=== PATIENT | female | born 1960 | race Caucasian/White ===

== ENCOUNTER → 2018-09-22 08:03 | Outpatient (CLI) | payer BC, SELFPAY ==
--- NOTE | 2018-09-22 08:24 | CT_ITS ---
STUDY: CT ABDOMEN AND PELVIS WITH CONTRAST REASON FOR EXAM: Female, 58 years old. Right flank pain. Lower abdominal pain. History of partial left nephrectomy for renal cancer. History of appendectomy and cholecystectomy and salpingo-oophorectomy. RADIATION DOSAGE (If Supplied By Facility): CTDIvol = ( 11.59 ) mGy, DLP = ( 1050.48 ) mGycm TECHNIQUE: Transaxial images were obtained from the dome of the diaphragm to the symphysis pubis with oral contrast. Isovue 300 100 IV/Oral was administered. Sagittal and coronal images were reconstructed. Individualized dose optimization techniques were used for this CT. COMPARISON: July 30, 2015. FINDINGS: The visualized lung bases are unremarkable. The visualized portions of the heart are within normal limits. There is minimal fatty infiltration liver without focal mass. Gallbladder is absent consistent with history of cholecystectomy. No biliary ductal dilatation. Normal spleen. Normal pancreas. Normal bilateral adrenal glands. Normal right kidney. Normal right ureter. The left kidney appears grossly normal in size and cortical thickness and enhancement. The upper pole area is an exophytic mixed fat and solid density mass measuring 1.4 x 1.3 x 1.7 cm with minimal stranding in the adjacent fat. This is the site of the prior renal malignancy seen on the earlier examination. There are pararenal cyst. Normal left ureter. There is a small type I hiatal hernia. The stomach is otherwise unremarkable. Normal small intestine. Normal colon. There is non-visualization of the appendix. Normal abdominal aorta. Normal inferior vena cava. Normal retroperitoneum. Normal urinary bladder. The uterus is anteverted and midline. There is no visualized right adnexa. There is a 1.6 cm cyst in the left ovary. There is no pelvic lymphadenopathy. No free air or free fluid is seen within the peritoneal cavity. Normal abdominal wall. Stable mild degenerative changes of the lumbar spine. CT/Abdomen/Pelvis WITH Contrast IMPRESSION: 1. Interval removal of the left renal cell carcinoma seen on the prior study. There is mild stranding and fat density in the surgical bed without obvious recurrence. 2. No metastatic disease. 3. Mild fatty infiltration of the liver. 4. Hiatal hernia. 5. Marked reduction in the left ovarian cyst when compared to the prior study. Electronically Signed: Constantino Osorio DO at 19:18 EST Tel [phone], Service support ,
[2018-09-22 09:09] VITALS: BP 165/83; PULSE 73; RESP 16; O2SAT 97; BMI 32.4
[2018-09-22] MEDS: DiphenhydrAMINE 50 MG/ML Syringe 25 MG IV (09:36)
[2018-09-22 09:40] LABS: CREATININE FINGERSTICK 1.2 mg/dL (0.55-1.02)
== END ==
PROVIDERS: Family Provider Family Medicine; PCP Family Medicine; Referring Provider Family Medicine; Visit Provider Family Medicine
DX: M54.5 Low back pain (principal); R10.30 Lower abdominal pain, unspecified
CPT/HCPCS: 74177; Q9967; A4216

== ENCOUNTER → 2020-04-08 09:57 | Outpatient (CLI) | payer BC, SELFPAY ==
[2018-09-22 09:09] VITALS: BMI 32.4
[2020-04-08 13:25] LABS: ALB/GLOB Ratio 0.8 RATIO (0.9-2.4); AST(SGOT) 28 U/L (15-37); Alanine Aminotransfer ALT/SGPT 43 U/L (13-56); Albumin, Serum 3.2 g/dL (3.2-5.0); Alkaline Phosphatase 115 U/L (45-117); Anion Gap 8 (5-15); BUN 19 mg/dL (7-18); Calcium,Total 8.8 mg/dL (8.5-10.1); Chloride 109 mmol/L (98-107); Cholesterol 199 mg/dL (200); Creatinine, Serum 1.27 mg/dL (0.55-1.02); EST Glomerular Filtration Rate 45 mL/min (>60); Est Glom Filt Rate - Afr Amer 55 mL/min (>60); Free T3 2.4 pg/mL (2.18-3.98); Globulin 4.2 g/dL (2.2-4.2); Glucose 98 mg/dL (74-106); High Density Lipoprotein 53 mg/dL; Potassium 3.8 mmol/L (3.5-5.1); Protein, Total 7.4 g/dL (6.4-8.2); Sodium Level 142 mmol/L (136-145); T4 Total, Thyroxin 10.8 ug/dL (4.8-13.9); Thyroid Stim Hormone (TSH) 1.51 uIU/mL (0.358-3.74); Triglycerides 104 mg/dL; Very Low Density Lipoprotein 21 mg/dL (5-40)
== END ==
PROVIDERS: PCP Family Medicine; Referring Provider Family Medicine; Visit Provider Family Medicine
DX: Z00.00 Encounter for general adult medical examination without abnormal findings (principal)
CPT/HCPCS: 36415; 80053; 80061; 84436; 84443; 84481; 87086; 87088

== ENCOUNTER → 2020-12-19 10:07 | Outpatient (CLI) | payer BC, SELFPAY ==
[2018-09-22 09:09] VITALS: BMI 32.4
[2020-12-25 08:08] LABS: Alternaria alternata <0.10 kU/L (Class 0); Aspergillus fumigatus <0.10 kU/L (Class 0); Bahia Grass 0.14 kU/L (Class 0/I); Bermuda Grass <0.10 kU/L (Class 0); Bluegrass, Kentucky 0.12 kU/L (Class 0/I); Cat Hair/Dander, Standard <0.10 kU/L (Class 0); Cedar, Mountain <0.10 kU/L (Class 0); Cladosporium herbarum <0.10 kU/L (Class 0); Cockroach, American <0.10 kU/L (Class 0); D farinae Mite <0.10 kU/L (Class 0); D pteronyssinus <0.10 kU/L (Class 0); Dog Epithelia <0.10 kU/L (Class 0); Elm, American White <0.10 kU/L (Class 0); Hazelnut Tree <0.10 kU/L (Class 0); Hickory, White <0.10 kU/L (Class 0); Johnson Grass <0.10 kU/L (Class 0); Maple/Box Elder 0.11 kU/L (Class 0/I); Mucor racemosus <0.10 kU/L (Class 0); Mugwort <0.10 kU/L (Class 0); Mulberry, White <0.10 kU/L (Class 0); Oak, White 0.14 kU/L (Class 0/I); Penicillium chrysogen <0.10 kU/L (Class 0); Pigweed, Rough <0.10 kU/L (Class 0); Ragweed, Short/Common <0.10 kU/L (Class 0); Sheep Sorrel(Dock) 0.11 kU/L (Class 0/I); Stemphylium herbarum <0.10 kU/L (Class 0); Sweet Gum <0.10 kU/L (Class 0); Sycamore, American 0.15 kU/L (Class 0/I)
[2020-12-25 13:10] LABS: Nettle <0.10 kU/L (Class 0)
== END ==
LOC: MFPLAB 10:08
PROVIDERS: PCP Family Medicine; Referring Provider Family Medicine; Visit Provider Family Medicine
DX: J30.2 Other seasonal allergic rhinitis (principal)
CPT/HCPCS: 36415; 86003

== ENCOUNTER → 2021-06-09 17:07 | Outpatient (CLI) | payer BC, SELFPAY | PROVIDERS: PCP Family Medicine; Visit Provider Family Medicine | DX: U07.1 COVID-19 (principal) | CPT/HCPCS: 87635; U0005; U0003 ==

== ENCOUNTER 2021-06-11 16:46 | Outpatient (CLI) | payer BC, SELFPAY ==
[2021-06-11 17:06] VITALS: BP 125/62; PULSE 86; RESP 16; TEMP 37.2; O2SAT 96; BMI 34.2
[2021-06-11] MEDS: 0.9% Saline Lock 10 ML Syringe IV (17:10)
[2021-06-11 17:43] VITALS: BP 126/62; PULSE 80; RESP 16; TEMP 37.1; O2SAT 99
[2021-06-11 18:43] VITALS: BP 129/62; PULSE 82; RESP 16; TEMP 37.3; O2SAT 98
== END 2021-06-11 18:43 | disposition home or self-care (01) ==
LOC: MS3OUT 16:46 → MS3 16:46
PROVIDERS: PCP Family Medicine; Referring Provider Nurse Practitioner Adult Health; Visit Provider Nurse Practitioner Adult Health
DX: Z23 Encounter for immunization (principal); U07.1 COVID-19
CPT/HCPCS: J7050; M0245; Q0245; A4216

== ENCOUNTER → 2021-06-24 07:58 | Outpatient (CLI) | payer BC, SELFPAY ==
--- NOTE | 2021-06-24 08:04 | CT_ITS ---
STUDY: CT MAXILLOFACIAL SINUSES REASON FOR EXAM: Female, 60 years old. SINUSITIS RADIATION DOSAGE (If Supplied By Facility): CTDIvol = ( 28.14 ) mGy, DLP = ( 732.12 ) mGycm TECHNIQUE: The patient was scanned in a multi detector CT scanner. High resolution axial imaging was performed without the administration of intravenous contrast material. Sagittal and coronal images were reconstructed. Individualized dose optimization techniques were used for this CT. COMPARISON: None. FINDINGS: FRONTAL SINUSES: Opacification of the right frontal sinus. ETHMOIDAL SINUSES: Partial opacification of the ethmoid sinuses. MAXILLARY SINUSES: There is mucosal thickening of both maxillary sinuses. There has been prior resection of the medial wall of the maxillary sinuses bilaterally. SPHENOIDAL SINUSES: Normal aeration, without mucosal inflammatory disease. There is patency of the bilateral maxillary infundibuli with normal uncinate processes, ethmoid bullae, and hiatus semilunaris. Normal bilateral middle turbinates. Normal bilateral inferior turbinates. There is a right sided nasal septal deviation, but without a nasal septal spur. There is patency of the bilateral nasal airways. The visualized osseous structures are normal. The visualized bilateral orbital contents are normal. CT/Sinus/Facial Bone IMPRESSION: Prior resection of the medial flores of both maxillary sinuses. Mucosal thickening of the maxillary sinuses bilaterally. Partial opacification of the ethmoid sinuses. Opacification of the right frontal sinus. Electronically Signed: Reese Narayan MD at 9:05 EST , Service support ,
== END ==
PROVIDERS: PCP Family Medicine; Referring Provider Otolaryngology; Visit Provider Otolaryngology
DX: J32.8 Other chronic sinusitis (principal)
CPT/HCPCS: 70486

== ENCOUNTER 2021-07-22 11:49 | Outpatient (CLI) | payer BC, SELFPAY ==
--- NOTE | 2021-07-22 11:52 | RAD_ITS ---
STUDY: X-RAY CHEST REASON FOR EXAM: Female, 60 years old. CHRONIC PAIN TECHNIQUE: PA and lateral views of the chest. COMPARISON: 11/09/2016 FINDINGS: The lungs are clear and expanded. There is no demonstrated pleural abnormality. Normal size heart. Normal mediastinum and khanh. Normal visualized pulmonary arteries. Normal visualized aortic arch and descending thoracic aorta. Normal visualized thoracic spine. Normal visualized ribs, clavicles, and shoulders. There is no demonstrated abnormality of the visualized soft tissue structures of the upper abdomen. RAD/Chest PA and Lateral IMPRESSION: Normal x-ray examination of the chest. Electronically Signed: Rex Abraham MD at 15:25 EST Tel , Service support ,
== END 2021-07-22 23:59 | disposition short-term general hospital (02) ==
LOC: MTRAD 11:51
PROVIDERS: PCP Family Medicine; Referring Provider Family Medicine; Visit Provider Family Medicine
DX: R05.3 Chronic cough (principal)
CPT/HCPCS: 71046

== ENCOUNTER 2021-09-02 14:26 | Outpatient (CLI) | payer BC, SELFPAY ==
[2021-09-02 14:40] LABS: Basophil# 0.07 X10^3/uL; Basophil% 0.7 % (0-1); Eosinophil# 1.21 X10^3/uL; Eosinophils% 11.9 % (0-5); Hematocrit 40.2 % (37-47); Hemoglobin 13.2 g/dL (12.0-15.0); Lymphocyte % 18.7 % (19-41); Mean Corp Hgb Conc 32.8 g/dL (32-36); Mean Corpuscular Hgb 28.7 pg (27.0-32.0); Mean Corpuscular Volume 87.4 fL (81-99); Mean Platelet Vol. 9.7 fl (6.2-12.0); Monocyte% 8.9 % (0-10); NRBC Flagged by Analyzer 0 % (0-5); Neutrophil # 6.04 X10^3/uL (2.7-7.7); Neutrophil % 59.4 % (47-70); Platelet Count 322 K/mm3 (150-450); RBC Distribution Width CV 13.8 % (11.6-14.6); White Blood Count 10.2 K/mm3 (4.4-11.0)
[2021-09-08 13:17] LABS: Immunoglobulin E 160 IU/mL (6-495)
== END 2021-09-02 23:59 | disposition home or self-care (01) ==
LOC: PAVLAB 14:27
PROVIDERS: PCP Family Medicine; Referring Provider Internal Medicine Critical Care Medicine; Visit Provider Internal Medicine Critical Care Medicine
DX: R05.3 Chronic cough (principal)
CPT/HCPCS: 36415; 82785; 85025

== ENCOUNTER 2021-09-12 09:17 | Outpatient (CLI) | payer BC, SELFPAY ==
--- NOTE | 2021-09-12 12:44 | PFT ---
INTRODUCTION: The patient is a 60-year-old female that presents for pulmonary function studies secondary to a diagnosis of chronic cough. Respiratory therapy reported good patient effort. Bronchodilators were used during testing. INTERPRETATION: Forced expiration spirometry demonstrates no evidence of a large airways obstructive ventilatory defect. There was no significant response to aerosolized bronchodilators. Spirograms are of good quality and plateau normally. Body plethysmography was performed and reveals lung volumes to be within normal limits. Diffusing capacity by single breath CO is also within normal limits. IMPRESSION: Grossly normal pulmonary function studies.
== END 2021-09-12 23:59 | disposition home or self-care (01) ==
LOC: PSN 09:21
PROVIDERS: PCP Family Medicine; Referring Provider Internal Medicine Critical Care Medicine; Visit Provider Internal Medicine Critical Care Medicine
DX: R05.3 Chronic cough (principal)
CPT/HCPCS: 94060; 94726; 94729

== ENCOUNTER 2021-09-22 10:13 | Outpatient (CLI) | payer BC, SELFPAY ==
[2021-09-23 19:07] LABS: Cytoplasmic Ab (C-ANCA) <1:20 titer (Neg:<1:20)
[2021-09-23 19:58] LABS: Perinuclear Ab (P-ANCA) <1:20 titer (Neg:<1:20)
== END 2021-09-22 23:59 | disposition home or self-care (01) ==
PROVIDERS: PCP Family Medicine; Referring Provider Nurse Practitioner Acute Care; Visit Provider Nurse Practitioner Acute Care
DX: J45.40 Moderate persistent asthma, uncomplicated (principal)
CPT/HCPCS: 36415; 86256

== ENCOUNTER → 2022-06-18 | Outpatient (CLI) | payer BC, SELFPAY ==
[2022-06-18 12:12] LABS: Erythrocyte Sedimentation Rate 35 mm/hr (0-30)
[2022-06-18 12:16] LABS: Absolute Neutrophil Count 6.7 X10^3/uL (2.0-7.7); Basophil# 0.07 X10^3/uL; Basophil% 0.7 % (0-1); Eosinophil# 0.64 X10^3/uL; Hematocrit 39.8 % (37-47); Hemoglobin 12.7 g/dL (12.0-15.0); Lymphocyte % 21.7 % (19-41); Mean Corp Hgb Conc 31.9 g/dL (32-36); Mean Corpuscular Volume 87.9 fL (81-99); Mean Platelet Vol. 10.5 fl (6.2-12.0); Monocyte# 0.89 X10^3/uL; Monocyte% 8.4 % (0-10); NRBC Flagged by Analyzer 0 % (0-5); Neutrophil # 6.65 X10^3/uL (2.7-7.7); Neutrophil % 62.9 % (47-70); Platelet Count 344 K/mm3 (150-450); RBC Distribution Width CV 13.3 % (11.6-14.6); RBC Distribution Width SD 42.9 fl (35.1-43.9); Red Blood Count 4.53 M/mm3 (4.2-5.4); White Blood Count 10.6 K/mm3 (4.4-11.0)
== END | disposition home or self-care (01) ==
LOC: MFPLAB 09:51
PROVIDERS: PCP Family Medicine; Referring Provider Family Medicine; Visit Provider Family Medicine
DX: R22.0 Localized swelling, mass and lump, head (principal)
CPT/HCPCS: 36415; 85025; 85652; 86140

== ENCOUNTER → 2022-07-17 | Outpatient (CLI) | payer BC, SELFPAY ==
--- NOTE | 2022-07-17 09:44 | RAD_ITS ---
INDICATION: BRONCHITIS EXAMINATION/TECHNIQUE: X-RAY - XR Chest 2 Views COMPARISON: 07/22/2021 FINDINGS: Support devices: None. No focal consolidations, effusions, or sizable pneumothorax. Cardiomediastinal silhouette is within normal limits. No acute findings in the bones or soft tissues. RAD/Chest PA and Lateral IMPRESSION: No radiographic evidence of acute cardiopulmonary disease. Stable exam since 07/22/2021. Electronically Signed: Jarad Keyes, at 10:24 EST ,
== END | disposition home or self-care (01) ==
LOC: MTRAD 09:43
PROVIDERS: PCP Family Medicine; Referring Provider Family Medicine; Visit Provider Family Medicine
DX: J20.9 Acute bronchitis, unspecified (principal)
CPT/HCPCS: 71046

== ENCOUNTER → 2022-09-25 | Outpatient (CLI) | payer BC, SELFPAY ==
[2022-09-25 15:28] LABS: Absolute Lymphocyte Count 2.73 X10^3/uL (0.83-4.51); Absolute Neutrophil Count 6.9 X10^3/uL (2.0-7.7); Basophil# 0.06 X10^3/uL; Basophil% 0.5 % (0-1); Eosinophil# 0.61 X10^3/uL; Eosinophils% 5.5 % (0-5); Hematocrit 40.3 % (37-47); Lymphocyte # 2.73 X10^3/ul (0.83-4.51); Lymphocyte % 24.4 % (19-41); Mean Corp Hgb Conc 32.3 g/dL (32-36); Mean Corpuscular Hgb 28.4 pg (27.0-32.0); Mean Platelet Vol. 10.1 fl (6.2-12.0); Monocyte# 0.87 X10^3/uL; Monocyte% 7.8 % (0-10); NRBC Flagged by Analyzer 0 % (0-5); Neutrophil # 6.86 X10^3/uL (2.7-7.7); Neutrophil % 61.4 % (47-70); Platelet Count 372 K/mm3 (150-450); RBC Distribution Width CV 13.5 % (11.6-14.6); RBC Distribution Width SD 43.4 fl (35.1-43.9); Red Blood Count 4.58 M/mm3 (4.2-5.4); White Blood Count 11.2 K/mm3 (4.4-11.0)
--- NOTE | 2022-09-26 06:54 | PFT ---
INTRODUCTION: The patient is a 62-year-old female that presents for pulmonary function studies secondary to a diagnosis of chronic cough. Respiratory therapy reported good patient effort. Bronchodilators were used during testing. INTERPRETATION: Forced expiration spirometry demonstrates no evidence of a large airways obstructive ventilatory defect. There was no significant response to aerosolized bronchodilators. Spirograms are of good quality but plateau gradually indicating slow emptying of the lungs. Body plethysmography was performed and reveals lung volumes to be within normal limits. Diffusing capacity by single breath CO is within normal limits. IMPRESSION: Grossly normal pulmonary function studies.
[2022-09-30 17:07] LABS: Alternaria alternata <0.10 kU/L (Class 0); Bermuda Grass <0.10 kU/L (Class 0); Bluegrass, Kentucky <0.10 kU/L (Class 0); Cat Hair/Dander, Standard <0.10 kU/L (Class 0); D farinae Mite <0.10 kU/L (Class 0); D pteronyssinus <0.10 kU/L (Class 0); Dog Epithelia <0.10 kU/L (Class 0); Elm, American White <0.10 kU/L (Class 0); Oak, White 0.14 kU/L (Class 0/I); Plantain, English <0.10 kU/L (Class 0); Ragweed, Short/Common <0.10 kU/L (Class 0)
[2022-09-30 18:07] LABS: Aspirgillus flavus Negative (Neg:<1:1); Aspirgillus fumigatus Negative (Neg:<1:1); Aspirgillus niger Negative (Neg:<1:1); Cytoplasmic Ab (C-ANCA) <1:20 titer (Neg:<1:20)
[2022-09-30 21:26] LABS: Mouse Urine <0.10 kU/L (Class 0)
[2022-09-30 21:28] LABS: Immunoglobulin E 100 IU/mL (6-495); Perinuclear Ab (P-ANCA) <1:20 titer (Neg:<1:20)
== END | disposition home or self-care (01) ==
PROVIDERS: PCP Family Medicine; Referring Provider Nurse Practitioner Acute Care; Visit Provider Nurse Practitioner Acute Care
DX: R05.3 Chronic cough (principal)
CPT/HCPCS: 36415; 82785; 85025; 86003; 86256; 86606; 94060; 94726; 94729

== ENCOUNTER 2023-02-26 15:32 | Outpatient (CLI) | payer BC, SELFPAY | END 2023-02-26 23:59 | disposition home or self-care (01) | LOC: LABSPEC 15:34 | PROVIDERS: PCP Family Medicine; Referring Provider Ophthalmology; Visit Provider Ophthalmology | DX: H10.22 Pseudomembranous conjunctivitis (principal) | CPT/HCPCS: 87070; 87075; 87077; 87186; 87205 ==

== ENCOUNTER → 2023-05-13 | Outpatient (CLI) | payer BC, SELFPAY | END | disposition home or self-care (01) | LOC: LABSPEC 12:22 | PROVIDERS: PCP Family Medicine; Referring Provider Ophthalmology; Visit Provider Ophthalmology | DX: H10.22 Pseudomembranous conjunctivitis (principal) | CPT/HCPCS: 87070; 87075; 87077; 87186; 87205 ==

== ENCOUNTER → 2023-11-12 | Outpatient (CLI) | payer BC, MEDICARE, SELFPAY ==
[2023-11-12 12:45] LABS: ALB/GLOB Ratio 0.8 RATIO (0.9-2.4); AST(SGOT) 37 U/L (15-37); Alanine Aminotransfer ALT/SGPT 47 U/L (13-56); Albumin, Serum 3.3 g/dL (3.2-5.0); Alkaline Phosphatase 134 U/L (45-117); Anion Gap 3 (5-15); BUN 15 mg/dL (7-18); BUN/Creat Ratio 13.4 RATIO (10-20); Calcium,Total 8.9 mg/dL (8.5-10.1); Chloride 110 mmol/L (98-107); Cholesterol 181 mg/dL (200); Creatinine, Serum 1.12 mg/dL (0.55-1.02); EST Glomerular Filtration Rate 52 mL/min (>60); Est Glom Filt Rate - Afr Amer 63 mL/min (>60); Globulin 4.2 g/dL (2.2-4.2); Glucose 116 mg/dL (74-106); High Density Lipoprotein 51 mg/dL; Potassium 4.1 mmol/L (3.5-5.1); Protein, Total 7.5 g/dL (6.4-8.2); Sodium Level 141 mmol/L (136-145); Triglycerides 198 mg/dL; Very Low Density Lipoprotein 40 mg/dL (5-40)
== END | disposition home or self-care (01) ==
PROVIDERS: PCP Family Medicine; Visit Provider Family Medicine
DX: Z00.00 Encounter for general adult medical examination without abnormal findings (principal)
CPT/HCPCS: 36415; 80053; 80061

== ENCOUNTER → 2023-11-15 | Outpatient (CLI) | payer BC, MEDICARE, SELFPAY ==
[2023-11-18 17:07] LABS: HPV APTIMA, High Risk Negative (Negative)
[2023-11-19 21:26] LABS: HPV Reflexed? YES, CHARGE PATIENT
== END | disposition home or self-care (01) ==
LOC: LABSPEC 12:22
PROVIDERS: PCP Family Medicine; Referring Provider Nurse Practitioner Family; Visit Provider Nurse Practitioner Family
DX: Z12.4 Encounter for screening for malignant neoplasm of cervix (principal)
CPT/HCPCS: 87624; 88175; G0145

== ENCOUNTER → 2024-02-09 | Outpatient (CLI) | payer BC, MEDICARE, SELFPAY ==
--- NOTE | 2024-02-09 07:59 | CT_ITS ---
STUDY: CT ORBITS WITHOUT CONTRAST REASON FOR EXAM: Female, 63 years old. Mechanical ptosis of left eyelid RADIATION DOSAGE (If Supplied By Facility): CTDIvol = ( 29.38 ) mGy, DLP = ( 356.46 ) mGycm TECHNIQUE: The patient was scanned in a multi detector CT scanner. Transaxial imaging was performed without the administration of intravenous contrast material. Sagittal and coronal images were reconstructed. Individualized dose optimization techniques were used for this CT. COMPARISON: Comparison is made with prior study dated June 24, 2021. FINDINGS: Normal globes. Normal intraconal spaces. Normal optic nerve sheath complex. Normal bilateral extraocular muscles. Normal lacrimal glands. Normal bilateral medial and inferior orbital flores. Normal bilateral maxillary bones. Normal bilateral frontozygomatic arches. Normal bilateral zygomatic temporal arches. Mucosal thickening of the right frontal sinus. There is partial opacification of the ethmoid sinuses. Mucosal thickening of the maxillary sinuses. Prior resection of the medial wall of both maxillary sinuses. Mucosal thickening of the sphenoid sinus more prominent on the right side. Normal soft tissue structures. CT/Orb Sella Post Fossa Ear w/o IMPRESSION: Sinusitis. Electronically Signed: Reese Narayan MD at 8:33 EDT ,
== END | disposition home or self-care (01) ==
PROVIDERS: PCP Family Medicine; Referring Provider Ophthalmology; Visit Provider Ophthalmology
DX: H02.412 Mechanical ptosis of left eyelid (principal)
CPT/HCPCS: 70480

== ENCOUNTER → 2024-02-11 | Outpatient (CLI) | payer BC, MEDICARE, SELFPAY | END | disposition home or self-care (01) | LOC: LABSPEC 10:11 | PROVIDERS: PCP Family Medicine; Referring Provider Ophthalmology; Visit Provider Ophthalmology | DX: H10.432 Chronic follicular conjunctivitis, left eye (principal) | CPT/HCPCS: 87070; 87075; 87077; 87110; 87140; 87186; 87205 ==

== ENCOUNTER → 2024-03-27 | Outpatient (CLI) | payer BC, MEDICARE, SELFPAY | END | disposition home or self-care (01) | PROVIDERS: PCP Family Medicine; Referring Provider Ophthalmology; Visit Provider Ophthalmology | DX: H02.59 Other disorders affecting eyelid function (principal); H02.412 Mechanical ptosis of left eyelid; H16.142 Punctate keratitis, left eye; H10.432 Chronic follicular conjunctivitis, left eye | CPT/HCPCS: 87070; 87075; 87205 ==

== ENCOUNTER → 2024-05-31 | Outpatient (CLI) | payer BC, MEDICARE, SELFPAY ==
[2024-05-31 11:12] LABS: Absolute Lymphocyte Count 1.98 X10^3/uL (0.83-4.51); Absolute Neutrophil Count 6.3 X10^3/uL (2.0-7.7); Basophil# 0.09 X10^3/uL; Basophil% 0.9 % (0-1); Eosinophil# 1.04 X10^3/uL; Eosinophils% 9.8 % (0-5); Hematocrit 38.9 % (37-47); Hemoglobin 12.5 g/dL (12.0-15.0); Lymphocyte # 1.98 X10^3/ul (0.83-4.51); Lymphocyte % 18.7 % (19-41); Mean Corp Hgb Conc 32.1 g/dL (32-36); Mean Corpuscular Hgb 27.9 pg (27.0-32.0); Mean Corpuscular Volume 86.8 fL (81-99); Monocyte# 1.15 X10^3/uL; Monocyte% 10.9 % (0-10); NRBC Flagged by Analyzer 0 % (0-5); Neutrophil # 6.27 X10^3/uL (2.7-7.7); Neutrophil % 59.3 % (47-70); Platelet Count 356 K/mm3 (150-450); RBC Distribution Width CV 14.2 % (11.6-14.6); RBC Distribution Width SD 45.1 fl (35.1-43.9); Red Blood Count 4.48 M/mm3 (4.2-5.4); White Blood Count 10.6 K/mm3 (4.4-11.0)
== END | disposition home or self-care (01) ==
LOC: LAB 10:32
PROVIDERS: PCP Family Medicine; Referring Provider Internal Medicine Infectious Disease; Visit Provider Internal Medicine Infectious Disease
DX: B89 Unspecified parasitic disease (principal)
CPT/HCPCS: 36415; 85025

== ENCOUNTER → 2024-06-05 | Outpatient (CLI) | payer BC, MEDICARE, SELFPAY | END | disposition home or self-care (01) | LOC: LABSPEC 11:29 | PROVIDERS: PCP Family Medicine; Referring Provider Internal Medicine Infectious Disease; Visit Provider Internal Medicine Infectious Disease | DX: B89 Unspecified parasitic disease (principal) | CPT/HCPCS: 87177; 87209 ==

== ENCOUNTER 2024-07-24 11:59 | Emergency (ER) | payer BC, MEDICARE, SELFPAY ==
[2024-07-24 12:00] VITALS: BP 176/73; PULSE 95; RESP 16; TEMP 36.5; O2SAT 98; BMI 37.0
[2024-07-24] MEDS: Albuterol 2.5 MG/3 ML VIAL.NEB. INHALATION ×3 (12:32→13:28)
[2024-07-24 12:35] VITALS: PULSE 91; RESP 16
[2024-07-24 12:36] VITALS: O2SAT 95
[2024-07-24 12:46] LABS: Absolute Lymphocyte Count 1.37 X10^3/uL (0.83-4.51); Absolute Neutrophil Count 7.3 X10^3/uL (2.0-7.7); Basophil# 0.09 X10^3/uL; Basophil% 0.8 % (0-1); Eosinophil# 1.51 X10^3/uL; Eosinophils% 13.3 % (0-5); Hematocrit 38.9 % (37-47); Hemoglobin 12.5 g/dL (12.0-15.0); Lymphocyte # 1.37 X10^3/ul (0.83-4.51); Lymphocyte % 12.1 % (19-41); Mean Corp Hgb Conc 32.1 g/dL (32-36); Mean Corpuscular Hgb 27.8 pg (27.0-32.0); Mean Corpuscular Volume 86.6 fL (81-99); Mean Platelet Vol. 9.6 fl (6.2-12.0); Monocyte# 0.97 X10^3/uL; Monocyte% 8.6 % (0-10); NRBC Flagged by Analyzer 0 % (0-5); Neutrophil # 7.32 X10^3/uL (2.7-7.7); Neutrophil % 64.7 % (47-70); Platelet Count 357 K/mm3 (150-450); RBC Distribution Width SD 43.9 fl (35.1-43.9); Red Blood Count 4.49 M/mm3 (4.2-5.4); White Blood Count 11.3 K/mm3 (4.4-11.0)
--- NOTE | 2024-07-24 13:00 | RAD_ITS ---
HISTORY: Cough and wheezing for 2 to 3 weeks. TECHNIQUE: XR Chest 2 Views. COMPARISON: 07/17/2022. FINDINGS: CARDIOMEDIASTINAL BORDERS: Cardiac silhouette within normal limits in size. Mediastinal contour unremarkable. LUNGS: Radiographically clear. PLEURA: No pleural effusion or pneumothorax seen. OSSEOUS STRUCTURES: Unremarkable. RAD/Chest PA and Lateral IMPRESSION: No acute cardiopulmonary process identified. Electronically Signed: Emmie Cota MD at 13:18 EST ,
[2024-07-24 13:04] LABS: Anion Gap 2 (5-15); BUN 15 mg/dL (7-18); Calcium,Total 9.6 mg/dL (8.5-10.1); Chloride 108 mmol/L (98-107); Creatinine, Serum 1.15 mg/dL (0.55-1.02); EST Glomerular Filtration Rate 50 mL/min (>60); Est Glom Filt Rate - Afr Amer 61 mL/min (>60); Glucose 126 mg/dL (74-106); Potassium 4.4 mmol/L (3.5-5.1); Sodium Level 138 mmol/L (136-145)
[2024-07-24 13:29] VITALS: PULSE 107; RESP 16
--- NOTE | 2024-07-24 13:30 | EX.ED.DYSGE1 ---
HPI History of Present Illness Chief Complaint: Shortness of Breath Detail of Chief Complaint: Shortness of breath Informant: patient and spouse/S.O. Onset/Context/Timing Onset: Days Context: Sudden Onset Timing: Continuous and Waxes and wanes Quality: Respiratory symptoms with wheezing. Patient has history of asthma. Location: Upper respiratory Current Severity: Mild Maximum Severity: Moderate Worsened by: Exertion, coughing Relieved by: Nothing Associated Symptoms Associated Symptoms: Upper respiratory tract infectious symptoms Narrative Narrative: Patient is a 63-year-old woman. She has history of asthma for the past 4 years. She only uses her rescue inhaler. She feels that the steroids and other inhalers she was on caused her to have recurrent eye infections. Patient is reporting difficulty sleeping because of congestion. She does endorse postnasal drainage and mild sore throat. Her cough is productive of white to clear sputum. She has no history of smoking. She has no history of VTE. She denies leg pain, swelling or discoloration. She has no risk factors for VTE. Patient denies headache, visual, ocular auditory symptoms. Patient denies chest pain, pressure, tightness or heaviness. There is no pleuritic component. Patient denies GI symptoms. Prior similar symptoms: Yes Recent Illness/Hospitalization: Yes [facility] Medical History Chronic cough BMI 32.0-32.9,adult COVID-19 Home Medications ?Medication ?Instructions ?Recorded ?Last Taken ?Type Nebulizer machine #1 ea 07/27/22 Unknown Rx albuterol sulfate 90 mcg/actuation 2 puff inhalation Q4H PRN 09/29/23 Unknown Rx aerosol inhaler shortness of breath or wheezing #8.5 grams loratadine 10 mg capsule 10 mg PO QDAY #90 caps 09/29/23 Unknown Rx montelukast 10 mg tablet 10 mg PO QPM #90 tabs 09/29/23 Unknown Rx albuterol sulfate 2.5 mg/3 mL 2.5 mg (3 mL) inhalation Q4H PRN 02/15/24 Unknown Rx (0.083 %) solution for nebulization Sob &/Or Wheezing #180 mL mometasone 50 mcg/actuation nasal 2 spray intranasal BID #17 grams 04/12/24 Unknown Rx spray oxymetazoline 0.05 % nasal mist 2 spray intranasal Q12H PRN 04/12/24 Unknown History (Afrin (oxymetazoline)) pantoprazole 40 mg tablet,delayed 40 mg PO QDAY 04/12/24 Unknown History release tobramycin 0.3 %-dexamethasone 0.1 drp ophthalmic (eye) 04/12/24 Unknown History % eye drops,suspension fluticasone 250 mcg-salmeterol 50 1 inh inhalation BID #60 ea 04/20/24 Unknown Rx mcg/dose blistr powdr for inhalation (Wixela Inhub) inhalational spacing device #1 ea 07/24/24 Unknown Rx (Aerochamber MV spacer) Allergy/AdvReac Type Severity Reaction Status Date / Time cephalexin (From Keflex) Allergy Intermediate Swelling Verified 07/24/24 12:05 codeine Allergy Unknown Verified 07/24/24 12:00 doxycycline Allergy Hives Verified 07/24/24 12:05 erythromycin base Allergy Swelling Verified 07/24/24 12:00 iodine Allergy Other Verified 07/24/24 12:05 metronidazole (From Flagyl) Allergy Rash Verified 07/24/24 12:00 Penicillins Allergy Swelling Verified 07/24/24 12:00 phenobarbital Allergy Other Verified 07/24/24 12:05 procaine HCl (From Novocain) Allergy Swelling Verified 07/24/24 12:00 Sulfa (Sulfonamide Allergy Other Verified 07/24/24 12:00 Antibiotics) vancomycin Allergy Shortness Verified 07/24/24 12:00 of breath fexofenadine (From Kya) AdvReac Intermediate COUGH Verified 07/24/24 12:05 budesonide (From Symbicort) AdvReac Mild Other Verified 07/24/24 12:00 formoterol (From Symbicort) AdvReac Mild Other Verified 07/24/24 12:00 guaifenesin (From Mucinex) AdvReac Mild Vomiting Verified 07/24/24 12:05 Surgical History Hx of appendectomy Hx of cholecystectomy H/O tubal ligation H/O tooth extraction Social History Smoking Status: Former smoker ROS ROS ED Constitutional Constitutional ED: Denies chills, fever(s), subjective or sweats Eyes Eyes: Denies blurry vision or change in vision ENT ENT ED: Reports rhinorrhea; Denies ear pain or sore throat Cardiovascular Cardiovascular: Denies chest pain, orthopnea, palpitations or paroxysmal nocturnal dyspnea Respiratory/Chest Respiratory/Chest: Reports cough, dyspnea, dyspnea on exertion and sputum; Denies orthopnea or paroxysmal nocturnal dyspnea Gastrointestinal Gastrointestinal: Denies abdominal pain, diarrhea, nausea or vomiting Genitourinary Genitourinary ED: Denies dysuria, hematuria or urinary frequency Musculoskeletal Musculoskeletal: Reports arthralgias; Denies back pain, myalgias or neck pain Integumentary Denies rash Neurologic Neurologic: Denies headache(s) or paresthesias Endocrine Endocrinology: Denies cold intolerance or heat intolerance Hematologic/Lymphatic Hematologic/Lymphatic: Reports systems reviewed and no addt'l complaints, except as documented EXAM Physical Exam Const Vital Signs: 07/24/24 12:00 07/24/24 12:03 07/24/24 12:35 Temperature 97.7 F L Temperature Source Oral Pulse Rate 95 91 Respiratory Rate 16 16 Respiratory Effort Short of Breath Respiratory Depth Normal Respiratory Pattern Normal Blood Pressure 176/73 H Blood Pressure Mean 107 Pulse Ox 98 Oxygen Delivery Method Room Air 07/24/24 12:36 07/24/24 13:29 Temperature Temperature Source Pulse Rate 107 H Respiratory Rate 16 Respiratory Effort Respiratory Depth Respiratory Pattern Blood Pressure Blood Pressure Mean Pulse Ox 95 Oxygen Delivery Method Room Air Positive well nourished and well developed Constitutional Narrative: BMI is 37.0. General Appearance ED: well developed and NAD; Negative for pallor HEENT Reports moist mucous membranes Eyes PERRL and EOMs intact bilaterally General Eye ED: Negative for pale conjunctiva or scleral icterus Neck no lymphadenopathy, supple and no JVD Chest Wall inspection of chest normal and palpation of chest normal Resp normal respiratory effort and No clear to auscultation bilaterally Auscultation: wheezes expiratory wheezes and throughout Cardio regular rate, regular rhythm, S1 normal heart sound, S2 normal heart sound and no murmurs GI normal to inspection, nondistended, normoactive bowel sounds, non-tender, non-distended and no masses; Negative for hepatosplenomegaly Back/Spine no CVA tenderness Extremity normal to inspection General Extremety ED: Negative for edema or tenderness General Extremity: Negative for edema Neuro oriented x3 and CN's II-XII intact bilaterally Sensorium / Orientation: alert Psych mental status grossly normal Skin no rashes or lesions noted, no wounds and skin turgor normal General Skin Exam: elasticity normal; Negative for jaundice or pallor MDM MDM MDM Narrative Medical decision making narrative: Patient with upper respiratory tract infectious symptoms that is exacerbating her asthma. She is reluctant to take prednisone. Will obtain chest x-ray to assess for pneumonia. Blood work was obtained to assess for endorgan dysfunction in the event she has pneumonia. She was treated with 3 albuterol aerosol treatments. Lab Data Attestation: I reviewed the patient's lab results. Lab results narrative: White count is slightly elevated 11.3. Creatinine slight elevated 1.15 with an estimated GFR of 50. Labs: Laboratory Results - last 24 hr 07/24/24 12:37 WBC 11.3 H RBC 4.49 Hgb 12.5 Hct 38.9 MCV 86.6 MCH 27.8 MCHC 32.1 RDW Std Deviation 43.9 RDW Coeff of Jamal 14.0 Plt Count 357 MPV 9.6 Immature Gran % (Auto) 0.500 Neut % (Auto) 64.7 Lymph % (Auto) 12.1 L [place] % (Auto) 8.6 Eos % (Auto) 13.3 H Baso % (Auto) 0.8 Absolute Neuts (auto) 7.3 Absolute Lymphs (auto) 1.37 Nucleated RBC % 0 Sodium 138 Potassium 4.4 Chloride 108 H Carbon Dioxide 28.0 Anion Gap 2 L BUN 15 Creatinine 1.15 H Estim Creat Clear Calc 53.40 Est GFR (MDRD) Af Amer 61 Est GFR (MDRD) Non-Af 50 L BUN/Creatinine Ratio 13.0 Glucose 126 H Calcium 9.6 Radiography Chest X-Ray - ED: 2 View and Read by ED Physician (There are no acute findings. Lung parenchyma without infiltrate. There is no effusion. Cardiac silhouette and size normal. Hilum is normal. [place] structures are normal.) Diagnostic Testing: Clinical Impression(s) from Imaging Studies Chest X-Ray 07/24/24 13:00 IMPRESSION: No acute cardiopulmonary process identified. Electronically Signed: Emmie Cota MD at 13:18 EST Reading Location ID and State: [facility] / [place] Tel , Service support , Treatment and Re-Evaluation :: Patient was reexamined at 1428. She is wheeze free. She states she feels much better. She does not not want a prescription for prednisone because she is concerned this causes her to have eye infection that will lead to blindness. Patient was prescribed a spacer since she does not have 1. She was informed that use of the spacer with the metered-dose inhaler (4 to 6 puffs) is equivalent to a nebulized treatment. Discharge Plan Triage Chief Complaint: Shortness of Breath ED Provider: Gino Blancas Dx/Rx/DC Orders Clinical Impression: Asthma exacerbation, GERD (gastroesophageal reflux disease), Acute upper respiratory infection, Adult BMI 37.0-37.9 kg/sq m Instructions: ED URI, Viral, No Abx (Adult) Prescriptions: New (DME) Aerochamber MV Spacer See Rx Instructions .Route Qty: 1 0RF Rx Instructions: As directed No Action (DME) Nebulizer machine See Rx Instructions .ROUTE .MEDSUPPLY Qty: 1 0RF Rx Instructions: As directed pantoprazole 40 mg tablet,delayed release (DR/EC) 40 mg PO QDAY tobramycin-dexamethasone 0.3-0.1 % drops,suspension ophthalmic (eye) Afrin (oxymetazoline) 0.05 % mist 2 spray intranasal Q12H PRN mometasone 50 mcg/actuation spray,non-aerosol 2 spray intranasal BID Qty: 17 11RF Rx Instructions: administer into each nostril albuterol sulfate 90 mcg/actuation HFA aerosol inhaler 2 puff inhalation Q4H PRN (Reason: shortness of breath or wheezing) Qty: 8.5 11RF Rx Instructions: administer with spacer loratadine 10 mg capsule 10 mg PO QDAY Qty: 90 3RF montelukast 10 mg tablet 10 mg PO QPM Qty: 90 3RF albuterol sulfate 2.5 mg /3 mL (0.083 %) solution for nebulization 2.5 mg inhalation Q4H PRN (Reason: Sob &/Or Wheezing) Qty: 180 3RF fluticasone propion-salmeterol [Wixela Inhub] 250-50 mcg/dose blister with device 1 inh inhalation BID Qty: 60 11RF Primary Care Provider: Jimmy Smith Referrals: Jimmy Smith MD [Primary Care Provider] - As Needed Activity Restrictions/Additional Instructions: 2 puffs of your inhaler every 2-4 hours while awake for the next 3 days then every 4-6 hours Print Language: Kyrgyz Disposition Disposition: Home, Self Care
[2024-07-24 14:00] VITALS: BP 134/78; PULSE 78; RESP 18; O2SAT 98
== END 2024-07-24 14:43 | disposition home or self-care (01) ==
PROVIDERS: Emergency Provider Emergency Medicine; PCP Family Medicine; Referring Provider Emergency Medicine; Visit Provider Emergency Medicine
DX: J45.901 Unspecified asthma with (acute) exacerbation (principal); J06.9 Acute upper respiratory infection, unspecified; K21.9 Gastro-esophageal reflux disease without esophagitis; Z98.51 Tubal ligation status; Z90.49 Acquired absence of other specified parts of digestive tract; Z86.16 Personal history of COVID-19
CPT/HCPCS: 71046; 80048; 85025; 87631; 94640; 99283; A4216

== ENCOUNTER → 2024-07-24 | Outpatient (CLI) | payer BC, MEDICARE, SELFPAY | END | disposition home or self-care (01) | PROVIDERS: PCP Family Medicine; Referring Provider Family Medicine; Visit Provider Family Medicine | DX: R05.3 Chronic cough (principal) | CPT/HCPCS: 87070; 87077; 87186; 87205 ==

== ENCOUNTER → 2024-07-31 | Outpatient (CLI) | payer BC, MEDICARE, SELFPAY | END | disposition home or self-care (01) | LOC: LABSPEC 16:43 | PROVIDERS: PCP Family Medicine; Referring Provider Family Medicine; Visit Provider Family Medicine | DX: R05.3 Chronic cough (principal) ==

== ENCOUNTER 2024-08-02 20:29 | Emergency (ER) | payer BC, MEDICARE, SELFPAY ==
[2024-08-02 20:32] VITALS: BP 161/120; PULSE 120; RESP 32; TEMP 36.7; O2SAT 97
[2024-08-02 20:36] VITALS: BP 161/120; PULSE 120; RESP 32; TEMP 36.7; O2SAT 97
--- NOTE | 2024-08-02 20:49 | EDS_ITS ---
HPI History of Present Illness Chief Complaint: Shortness of Breath Detail of Chief Complaint: Shortness of breath, wheezing, intractable cough that is productive Informant: patient Onset/Context/Timing Onset: Weeks (Approximately 2 weeks) Context: Sudden Onset Timing: Continuous and Waxes and wanes Quality: Upper respiratory symptoms that started the beginning of this year. Location: Respiratory Current Severity: Moderate Maximum Severity: Moderate Worsened by: Nothing specific Relieved by: Nothing Associated Symptoms Associated Symptoms: Congestion, productive cough, wheezing, abdominal pain with coughing and po Narrative Narrative: Patient is a 63-year-old woman. She has history of asthma. She was seen by me on July 24. She was diagnosed with exacerbation of her asthma. She refused steroids because she believes the steroids gave her a staph infection in her left eye that then went to her right eye. Patient states she had problems with infectious disease and had to see someone else. Patient denies fever or chills. Patient denies headache, visual, ocular auditory symptoms. Patient does endorse change in voice. Her cough is productive from clear to white green-yellow. She denies hemoptysis. She has no history of VTE. She denies leg pain, swelling discoloration. She has no risk factors for VTE. She denies nausea, vomiting or diarrhea. She denies dysuria, frequency, urgency or hematuria. Patient had a sputum culture obtained on August 01 and preliminary reading is gram-negative fermenting rods. Review of my note from July 24 indicates she was not placed on antibiotics because she only had been sick for few to several days. Prior similar symptoms: Yes Recent Illness/Hospitalization: Yes [facility] Medical History MRSA (methicillin resistant staph aureus) culture positive Chronic cough BMI 32.0-32.9,adult COVID-19 Home Medications ?Medication ?Instructions ?Recorded ?Last Taken ?Type Nebulizer machine #1 ea 07/27/22 Unknown Rx albuterol sulfate 90 mcg/actuation 2 puff inhalation Q4H PRN 09/29/23 Unknown Rx aerosol inhaler shortness of breath or wheezing #8.5 grams albuterol sulfate 2.5 mg/3 mL 2.5 mg (3 mL) inhalation Q4H PRN 02/15/24 Unknown Rx (0.083 %) solution for nebulization Sob &/Or Wheezing #180 mL mometasone 50 mcg/actuation nasal 2 spray intranasal BID #17 grams 04/12/24 Unknown Rx spray oxymetazoline 0.05 % nasal mist 2 spray intranasal Q12H PRN 04/12/24 Unknown History (Afrin (oxymetazoline)) pantoprazole 40 mg tablet,delayed 40 mg PO QDAY 04/12/24 Unknown History release inhalational spacing device #1 ea 07/24/24 Unknown Rx (Aerochamber MV spacer) montelukast 10 mg tablet 10 mg PO QPM #90 tabs 07/25/24 Unknown Rx cetirizine 10 mg capsule (All Day 10 mg PO DAILY 08/02/24 Unknown History Allergy (cetirizine)) levofloxacin 500 mg tablet 500 mg PO DAILY #6 tabs 08/02/24 Unknown Rx prednisone 20 mg tablet 40 mg (2 x 20 mg) PO DAILY #8 08/02/24 Unknown Rx TABLETS Allergy/AdvReac Type Severity Reaction Status Date / Time cephalexin (From Keflex) Allergy Intermediate Swelling Verified 08/02/24 20:31 codeine Allergy Unknown Verified 08/02/24 20:31 doxycycline Allergy Hives Verified 08/02/24 20:31 erythromycin base Allergy Swelling Verified 08/02/24 20:31 iodine Allergy Other Verified 08/02/24 20:31 metronidazole (From Flagyl) Allergy Rash Verified 08/02/24 20:31 Penicillins Allergy Swelling Verified 08/02/24 20:31 phenobarbital Allergy Other Verified 08/02/24 20:31 procaine HCl (From Novocain) Allergy Swelling Verified 08/02/24 20:31 Sulfa (Sulfonamide Allergy Other Verified 08/02/24 20:31 Antibiotics) vancomycin Allergy Shortness Verified 08/02/24 20:31 of breath fexofenadine (From Kya) AdvReac Intermediate COUGH Verified 08/02/24 20:31 budesonide (From Symbicort) AdvReac Mild Other Verified 08/02/24 20:31 formoterol (From Symbicort) AdvReac Mild Other Verified 08/02/24 20:31 guaifenesin (From Mucinex) AdvReac Mild Vomiting Verified 08/02/24 20:31 Surgical History Hx of appendectomy Hx of cholecystectomy H/O tubal ligation H/O tooth extraction Social History Smoking Status: Former smoker ROS ROS ED Constitutional Constitutional ED: Reports subjective; Denies chills, fever(s) or sweats Eyes Eyes: Denies blurry vision or change in vision ENT ENT ED: Reports other Details: Mild congestion. ; Denies ear pain, rhinorrhea or sore throat Cardiovascular Cardiovascular: Denies chest pain, orthopnea, palpitations, paroxysmal nocturnal dyspnea or racing heartbeat Respiratory/Chest Respiratory/Chest: Reports cough, dyspnea on exertion and sputum; Denies orthopnea or paroxysmal nocturnal dyspnea Gastrointestinal Gastrointestinal: Reports abdominal pain, vomiting and other Details: Posttussive vomiting ; Denies constipation, diarrhea, melena or nausea Genitourinary Genitourinary ED: Denies dysuria, hematuria or urinary frequency Musculoskeletal Musculoskeletal: Denies myalgias Integumentary Denies rash Neurologic Neurologic: Denies headache(s) or paresthesias Hematologic/Lymphatic Hematologic/Lymphatic: Reports systems reviewed and no addt'l complaints, except as documented EXAM Physical Exam Const Vital Signs: 08/02/24 20:32 08/02/24 20:36 08/02/24 20:45 Temperature 98.1 F 98.1 F Temperature Source Temporal Temporal Pulse Rate 120 H 120 H Respiratory Rate 32 H 32 H Respiratory Effort Labored Respiratory Pattern Blood Pressure 161/120 H 161/120 H Blood Pressure Mean 133 133 Pulse Ox 97 97 Oxygen Delivery Method Room Air Room Air 08/02/24 21:42 08/02/24 22:30 Temperature Temperature Source Pulse Rate 124 H 119 H Respiratory Rate 22 H 19 H Respiratory Effort Respiratory Pattern Tachypnea Blood Pressure Blood Pressure Mean Pulse Ox 100 Oxygen Delivery Method Room Air Positive well nourished and well developed Constitutional Narrative: Vital signs remarkable for elevated blood pressure, tachycardia and tachypnea. She not hypoxic or febrile. She has an intractable cough. General Appearance ED: well developed and pallor; Negative for cyanotic, diaphoretic or NAD HEENT HEENT Narrative: Head is atraumatic normocephalic. Nares patent. Ears normal. Did not visualize posterior pharynx and she is actively coughing. Eyes PERRL and EOMs intact bilaterally General Eye ED: Negative for pale conjunctiva or scleral icterus Neck no lymphadenopathy, supple and no JVD Neck Narrative: Trachea is midline. She does have mild dysphonia. Resp No normal respiratory effort and No clear to auscultation bilaterally Resp Narrative: There is use of accessory muscles. Patient has rhonchi and expiratory wheezing heard throughout . Effort and Inspection: Negative for retractions Cardio regular rhythm, S1 normal heart sound, S2 normal heart sound and no murmurs Rate: tachycardic GI normal to inspection, nondistended, normoactive bowel sounds, non-tender, non- distended and no masses; Negative for hepatosplenomegaly Extremity normal to inspection General Extremety ED: Negative for edema or tenderness General Extremity: Negative for edema Neuro oriented x3 and CN's II-XII intact bilaterally Sensorium / Orientation: alert Psych mental status grossly normal Skin no rashes or lesions noted, no wounds and skin turgor normal General Skin Exam: pallor; Negative for elasticity normal or jaundice MDM MDM MDM Narrative Medical decision making narrative: Differential diagnosis is upper respiratory viral infection exacerbating her asthma, pneumonia exacerbating her asthma, reflux that could be exacerbating her asthma. Will obtain chest x-ray to assess for pneumonia. Rapid antigen was ordered for flu influenza and RSV. Prior records were reviewed both ER and office visits. As noted sputum specimen has gram-negative rods that are lactose fermenting. History & Record Review Discussion w/independent historian: Patient Lab Data Attestation: I reviewed the patient's lab results. Lab results narrative: White count is elevated at 13.6 thousand with no shift. Electrolyte panel is remarkable for slight elevation of creatinine of 1.17 with an estimated GFR of 49.White count was 11.3 on July 24. Creatinine is essentially unchanged. Patient was reassessed at 2236. Patient is no longer wheezing. Labs: Laboratory Results - last 24 hr 08/02/24 21:15 WBC 13.6 H RBC 4.78 Hgb 13.2 Hct 41.6 MCV 87.0 MCH 27.6 MCHC 31.7 L RDW Std Deviation 44.9 H RDW Coeff of Jamal 14.1 Plt Count 341 MPV 9.6 Immature Gran % (Auto) 0.500 Neut % (Auto) 58.2 Lymph % (Auto) 16.2 L [place] % (Auto) 9.6 Eos % (Auto) 14.7 H Baso % (Auto) 0.8 Absolute Neuts (auto) 7.9 H Absolute Lymphs (auto) 2.21 Nucleated RBC % 0 Differential Comment SEE COMMENT Platelet Estimate ADEQUATE RBC Morphology NORM C+C Anisocytosis RARE Sodium 141 Potassium 3.8 Chloride 110 H Carbon Dioxide 27.0 Anion Gap 4 L BUN 21 H Creatinine 1.17 H Est GFR (MDRD) Af Amer 60 Est GFR (MDRD) Non-Af 49 L BUN/Creatinine Ratio 17.9 Glucose 105 Lactic Acid 1.1 Calcium 9.7 Radiography Chest X-Ray - ED: 2 View, Read by ED Physician (193. There is increased interstitial markings right lower lobe compared to x-ray performed on July 24, 2024.), Normal, Heart, Mediastinum and Bony Structures Diagnostic Testing: Clinical Impression(s) from Imaging Studies Chest X-Ray 08/02/24 21:22 IMPRESSION: No radiographic evidence of acute cardiopulmonary disease. Electronically Signed: Kyle Glover, at 21:45 EST , Radiology report was reviewed. Rhythm Strip Rhythm Strip: Sinus Tach Rate: 120 Ectopy: None Treatment and Re-Evaluation :: Plan is burst of prednisone, because her sputum is growing gram-negative rods that are lactose fermenting will treat with levofloxacin based on her numerous antibiotic allergies. Her allergies include penicillin, cephalosporin, sulfa, metronidazole, macrolides and doxycycline. Discharge Plan Triage Chief Complaint: Shortness of Breath ED Provider: Gino Blancas Dx/Rx/DC Orders Clinical Impression: Pneumonia, GERD (gastroesophageal reflux disease), Asthma exacerbation, Sinus tachycardia, Elevated blood-pressure reading without diagnosis of hypertension Instructions: ED Hypertension, To Be Confirmed, ED Pneumonia (Adult) Prescriptions: New prednisone 20 mg tablet 40 mg PO DAILY Qty: 8 0RF levofloxacin 500 mg tablet 500 mg PO DAILY Qty: 6 0RF No Action (DME) Nebulizer machine See Rx Instructions .ROUTE .MEDSUPPLY Qty: 1 0RF Rx Instructions: As directed pantoprazole 40 mg tablet,delayed release (DR/EC) 40 mg PO QDAY Afrin (oxymetazoline) 0.05 % mist 2 spray intranasal Q12H PRN mometasone 50 mcg/actuation spray,non-aerosol 2 spray intranasal BID Qty: 17 11RF Rx Instructions: administer into each nostril (DME) Aerochamber MV Spacer See Rx Instructions .Route Qty: 1 0RF Rx Instructions: As directed All Day Allergy (cetirizine) 10 mg capsule 10 mg PO DAILY albuterol sulfate 90 mcg/actuation HFA aerosol inhaler 2 puff inhalation Q4H PRN (Reason: shortness of breath or wheezing) Qty: 8.5 11RF Rx Instructions: administer with spacer albuterol sulfate 2.5 mg /3 mL (0.083 %) solution for nebulization 2.5 mg inhalation Q4H PRN (Reason: Sob &/Or Wheezing) Qty: 180 3RF montelukast 10 mg tablet 10 mg PO QPM Qty: 90 3RF Primary Care Provider: Jimmy Smith Referrals: Jimmy Smith MD [Primary Care Provider] - 1 Week Print Language: Polish Disposition Disposition: Home, Self Care
--- NOTE | 2024-08-02 20:57 | ED.RN ---
pt stated that she did not take her home meds because she wanted to make sure the doctor saw how bad she was becasue she knew she would be better. This nurse clarified with the pt and clarified the above because the doctor wanted her to come in earlier. Then went to start IV and the pt and the expressed,I hope they use the damn thing because the last time it was in no one used it. empathy given. Went to place IV in l arm and the pt verbalized that she had better spots on the r arm. Went to evaluate on the r arm and was going to start on r wrist site and pt refused and pointed to the r outter antecubetal. Go here. So this nurse attempted there and the pt immediately said,wrong site. SAFETY SITTER/MEDIC at the bedside came in,will try IV.
--- NOTE | 2024-08-02 21:22 | RAD_ITS ---
EXAM: XR CHEST, 2 VIEWS CLINICAL INDICATION: Cough, dyspnea, wheezing TECHNIQUE: Frontal and lateral views of the chest. COMPARISON: 07/24/2024 FINDINGS: LUNGS AND PLEURAL SPACES: No significant abnormality. No consolidation or edema. No pneumothorax. No effusion. HEART: No significant abnormality. Cardiac silhouette not enlarged. MEDIASTINUM: Central airways and mediastinal contour are unremarkable. BONES/JOINTS: No significant abnormality. No acute fracture. SOFT TISSUES: No significant abnormality. RAD/Chest PA and Lateral IMPRESSION: No radiographic evidence of acute cardiopulmonary disease. Electronically Signed: Kyle Glover DO at 21:45 EST ,
[2024-08-02 21:29] LABS: Absolute Lymphocyte Count 2.21 X10^3/uL (0.83-4.51); Absolute Neutrophil Count 7.9 X10^3/uL (2.0-7.7); Basophil# 0.11 X10^3/uL; Basophil% 0.8 % (0-1); Eosinophil# 2.01 X10^3/uL; Eosinophils% 14.7 % (0-5); Hematocrit 41.6 % (37-47); Hemoglobin 13.2 g/dL (12.0-15.0); Lymphocyte # 2.21 X10^3/ul (0.83-4.51); Lymphocyte % 16.2 % (19-41); Mean Corp Hgb Conc 31.7 g/dL (32-36); Mean Corpuscular Hgb 27.6 pg (27.0-32.0); Mean Platelet Vol. 9.6 fl (6.2-12.0); Monocyte# 1.31 X10^3/uL; Monocyte% 9.6 % (0-10); NRBC Flagged by Analyzer 0 % (0-5); Neutrophil # 7.93 X10^3/uL (2.7-7.7); Neutrophil % 58.2 % (47-70); POSITIVE DIFFERENTIAL YES; Platelet Count 341 K/mm3 (150-450); RBC Distribution Width CV 14.1 % (11.6-14.6); RBC Distribution Width SD 44.9 fl (35.1-43.9); Red Blood Count 4.78 M/mm3 (4.2-5.4); White Blood Count 13.6 K/mm3 (4.4-11.0)
[2024-08-02 21:31] LABS: Differential Indicated SCAN CRITERIA MET
[2024-08-02] MEDS: Albuterol 2.5 MG/3 ML VIAL.NEB. INHALATION (21:40)
[2024-08-02] MEDS: Ipratropium/Albuterol Sulfate 3 ML AMPUL.NEB INHALATION (21:40)
[2024-08-02 21:42] VITALS: PULSE 124; RESP 22
[2024-08-02 21:46] LABS: Anion Gap 4 (5-15); BUN 21 mg/dL (7-18); BUN/Creat Ratio 17.9 RATIO (10-20); Calcium,Total 9.7 mg/dL (8.5-10.1); Chloride 110 mmol/L (98-107); Creatinine, Serum 1.17 mg/dL (0.55-1.02); EST Glomerular Filtration Rate 49 mL/min (>60); Est Glom Filt Rate - Afr Amer 60 mL/min (>60); Glucose 105 mg/dL (74-106); Potassium 3.8 mmol/L (3.5-5.1); Sodium Level 141 mmol/L (136-145)
[2024-08-02 21:55] LABS: Anisocytosis RARE; Platelet Estimate ADEQUATE (ADEQ); Red Cell Morphology NORM C+C NORMAL (NORM C&C)
--- NOTE | 2024-08-02 21:57 | CPS ---
Breathing treatment stopped due to patient feeling gittery
[2024-08-02 21:59] LABS: Lactic Acid 1.1 mmol/L (0.4-1.9)
[2024-08-02 22:30] VITALS: PULSE 119; RESP 19; O2SAT 100
[2024-08-02 23:04] VITALS: BP 157/73; PULSE 115; RESP 18; TEMP 36.7; O2SAT 100
[2024-08-02] MEDS: predniSONE 20 MG Tablet 60 MG PO (23:14)
[2024-08-02] MEDS: levoFLOXacin 750 MG Tablet PO (23:14)
== END 2024-08-02 23:22 | disposition home or self-care (01) ==
PROVIDERS: Emergency Provider Emergency Medicine; PCP Family Medicine; Visit Provider Emergency Medicine
DX: J18.9 Pneumonia, unspecified organism (principal); R10.9 Unspecified abdominal pain; R03.0 Elevated blood-pressure reading, without diagnosis of hypertension; J45.901 Unspecified asthma with (acute) exacerbation; K21.9 Gastro-esophageal reflux disease without esophagitis; Z87.891 Personal history of nicotine dependence; Z86.16 Personal history of COVID-19; Z86.14 Personal history of Methicillin resistant Staphylococcus aureus infection; Z98.51 Tubal ligation status; Z90.49 Acquired absence of other specified parts of digestive tract
CPT/HCPCS: 71046; 80048; 83605; 85025; 87631; 94640; 99285; A4216

== ENCOUNTER → 2024-09-04 | Outpatient (CLI) | payer BC, MEDICARE, SELFPAY | END | disposition home or self-care (01) | LOC: LABSPEC 12:30 | PROVIDERS: PCP Family Medicine; Referring Provider Nurse Practitioner Family; Visit Provider Nurse Practitioner Family | DX: R05.3 Chronic cough (principal) | CPT/HCPCS: 87205 ==

== ENCOUNTER → 2024-10-12 | Outpatient (CLI) | payer BC, MEDICARE, SELFPAY ==
[2024-10-12 19:55] LABS: Anion Gap 13 (5-15); BUN 12 mg/dL (4-19); BUN/Creat Ratio 11.3 RATIO (10-20); Carbon Dioxide 19.6 mmol/L (21.0-32.0); Chloride 109 mmol/L (98-108); Creatinine, Serum 1.03 mg/dL (0.70-1.20); EST Glomerular Filtration Rate 60 (>60); Glucose 105 mg/dL (70-99); Potassium 4.1 mmol/L (3.3-5.1); Sodium Level 142 mmol/L (133-145)
[2024-10-12 20:29] LABS: Cholesterol 163 mg/dL (<=200); High Density Lipoprotein 48 mg/dL; Low Density Lipoprotein Calc. 90 mg/dL; Triglycerides 125 mg/dL; Very Low Density Lipoprotein 25 mg/dL (5-40)
== END | disposition home or self-care (01) ==
LOC: MFPLAB 08:44
PROVIDERS: PCP Family Medicine; Referring Provider Family Medicine; Visit Provider Family Medicine
DX: R03.0 Elevated blood-pressure reading, without diagnosis of hypertension (principal); R61 Generalized hyperhidrosis
CPT/HCPCS: 36415; 80048; 80061; 84443

== ENCOUNTER → 2024-11-03 | Outpatient (CLI) | payer BC, MEDICARE, SELFPAY ==
[2024-11-03 13:23] LABS: Pro- Brain NATRIURETIC PEPTIDE 48 pg/mL (<=900)
== END | disposition home or self-care (01) ==
LOC: LAB 11:09
PROVIDERS: PCP Family Medicine; Referring Provider Nurse Practitioner Family; Visit Provider Nurse Practitioner Family
DX: J45.40 Moderate persistent asthma, uncomplicated (principal)
CPT/HCPCS: 36415; 83880

== ENCOUNTER → 2025-01-04 | Outpatient (CLI) | payer BC, MEDICARE, SELFPAY ==
[2025-01-04 12:33] LABS: Absolute Lymphocyte Count 1.86 X10^3/uL (0.83-4.51); Absolute Neutrophil Count 6.4 X10^3/uL (2.0-7.7); Basophil# 0.07 X10^3/uL; Basophil% 0.7 % (0-1); Eosinophil# 0.85 X10^3/uL; Eosinophils% 8.5 % (0-5); Hematocrit 36.5 % (37-47); Hemoglobin 11.6 g/dL (12.0-15.0); Lymphocyte # 1.86 X10^3/ul (0.83-4.51); Lymphocyte % 18.5 % (19-41); Mean Corp Hgb Conc 31.8 g/dL (32-36); Mean Corpuscular Hgb 27.8 pg (27.0-32.0); Mean Corpuscular Volume 87.3 fL (81-99); Mean Platelet Vol. 10.4 fl (6.2-12.0); Monocyte# 0.83 X10^3/uL; Monocyte% 8.3 % (0-10); NRBC Flagged by Analyzer 0 % (0-5); Neutrophil # 6.39 X10^3/uL (2.7-7.7); Neutrophil % 63.7 % (47-70); Platelet Count 325 K/mm3 (150-450); RBC Distribution Width CV 14.3 % (11.6-14.6); RBC Distribution Width SD 45.6 fl (35.1-43.9); Red Blood Count 4.18 M/mm3 (4.2-5.4)
== END | disposition home or self-care (01) ==
LOC: MTLAB 09:46
PROVIDERS: PCP Family Medicine; Referring Provider Family Medicine; Visit Provider Family Medicine
DX: H10.9 Unspecified conjunctivitis (principal)
CPT/HCPCS: 36415; 85025

== ENCOUNTER → 2025-03-09 | Outpatient (CLI) | payer BC, MEDICARE, SELFPAY ==
--- NOTE | 2025-03-09 10:57 | BI_ITS ---
EXAM: SCRN MAMM (CAD)W/GRAEME BILAT DATE: 03/09/2025 CLINICAL HISTORY: F, Age 64 y/o , SCREEN TECHNIQUE: SCRN MAMM (CAD)W/GRAEME BILAT COMPARISON: Baseline examination, no priors. FINDINGS: TISSUE DENSITY: There are scattered areas of fibroglandular density. Bilateral Breast Mammographic Findings: No significant masses, calcifications or other abnormalities are identified. BI/SCRN MAMM (CAD)W/GRAEME BILAT IMPRESSION: There is no mammographic evidence of malignancy. OVERALL FINAL ASSESSMENT BI-RADS 1: NEGATIVE. RECOMMENDATION: Routine annual follow-up in 1 Year A letter with findings and recommendations will be mailed to the patient. Reading Location: [id number]
[2025-03-12 17:08] LABS: Cytoplasmic Ab (C-ANCA) <1:20 titer (Neg:<1:20); Perinuclear Ab (P-ANCA) <1:20 titer (Neg:<1:20)
== END | disposition home or self-care (01) ==
PROVIDERS: Nurse Practitioner Family; PCP Family Medicine; Referring Provider Family Medicine; Visit Provider Family Medicine
DX: Z12.31 Encounter for screening mammogram for malignant neoplasm of breast (principal); R05.3 Chronic cough
CPT/HCPCS: 36415; 77063; 77067; 86037

== ENCOUNTER → 2025-03-13 | Outpatient (CLI) | payer BC, MEDICARE, SELFPAY | END | disposition home or self-care (01) | LOC: LABSPEC 13:22 | PROVIDERS: PCP Family Medicine; Referring Provider Nurse Practitioner Family; Visit Provider Nurse Practitioner Family | DX: R05.3 Chronic cough (principal) | CPT/HCPCS: 87070; 87077; 87186; 87205 ==